=== PATIENT | male | born 1950 | race Asian ===

== ENCOUNTER 2016-07-19 09:09 | Day surgery (SDC) | payer BC, OTHER ==
[2016-07-14 13:14] VITALS: BMI 36.0
[2016-07-19] MEDS ORDERED: GUM MASTIC/STORAX/MSAL/ALCOHOL 1 DRP DROPSBTL MC ONE (10:15)
[2016-07-19] MEDS ORDERED: DEXAMETHASONE SOD PHOSPHATE/PF 10 MG/ML SDV ONE (10:21)
[2016-07-19] MEDS ORDERED: MIDAZOLAM HCL 2 MG/2 ML SINGLE DOSE VIAL ONE (10:21)
[2016-07-19] MEDS ORDERED: ROPIVACAINE HCL 0.5% 30ML VIAL ONE (10:22)
[2016-07-19] MEDS ORDERED: ceFAZolin SODIUM 1 GM VIAL ONE (10:55)
[2016-07-19] MEDS ORDERED: PROPOFOL 20 ML ONE (10:55)
[2016-07-19] MEDS ORDERED: oxyCODONE HCL 5 MG TABLET PO PRN ×2 (12:50→13:16)
[2016-07-19] MEDS ORDERED: LACTATED RINGERS SOLUTION 1,000 ML IV SCH (13:00)
[2016-07-19] MEDS ORDERED: ONDANSETRON 4 MG/2 ML VIAL IVPUSH PRN (13:16)
[2016-07-19 14:09] VITALS: PULSE 57
[2016-07-19] MEDS ORDERED: oxyCODONE HCL 5 MG TABLET ONE (14:29)
[2016-07-19 14:36] VITALS: BP 139/85; TEMP 98
--- NOTE | 2016-07-20 18:26 | OP ---
DATE OF OPERATION: 07/19/2016 PREOPERATIVE DIAGNOSES: 1. Left comminuted intra-articular displaced distal radius fracture. 2. Possible scapholunate ligament tear. POSTOPERATIVE DIAGNOSES: 1. Left comminuted intra-articular displaced distal radius fracture. 2. Left partial scapholunate ligament tear. OPERATIVE PROCEDURES: 1. Open reduction and internal fixation of left comminuted intra-articular displaced distal radius fracture with internal fixation of 3 or more fragments. 2. Left brachioradialis tenotomy. 3. Repair of partial scapholunate ligament tear. SURGEON: Simon Strange MD PIECE MEAT TRIMMER: ALBERTO Welch INDICATIONS FOR PROCEDURE: Patient is a 65-year-old male with the above findings, indicated for operative treatment. Risks, benefits, and alternatives were discussed with the patient at length and proper informed consent was obtained. DESCRIPTION OF PROCEDURE: After proper identification of the patient and the correct operative site, the patient was brought to the operating room and placed supine on the operating table. All prominences were well padded. Sedation was given by the anesthesiologist. Regional anesthesia was given with 2% lidocaine. The left upper extremity was prepped and draped in usual sterile fashion. A well-padded tourniquet was placed with a sterile prep. Esmarch bandage was used to exsanguinate the left upper extremity and a tourniquet was inflated to 250 mmHg. A longitudinal incision was made over the volar aspect of the wrist. The incision was taken sharply through the skin with blunt and sharp dissection through subcutaneous tissues. The flexor carpi radialis tendon along with the contents of the carpal canal was bluntly and gently retracted in the ulnarward direction for the remainder of the procedure. The pronator quadratus was divided longitudinally and elevated off the distal radius. A highly comminuted intra-articular displaced fracture was noted. A brachioradialis tenotomy was performed subperiosteally to include the radial styloid fragments. The shaft of the radius was pronated into the area, allowing access to the intrafocal area of the fracture. Articular fragments were found to be severely comminuted and were tamped up into the articular surface as well as possible. The shaft and distal radius were then reduced to each other and held with an Arthrex distal radius plate with distal locking screws and proximal nonlocking screws. Radiographically, this showed satisfactory reduction of the fracture. Slight widening of the scapholunate interval still appeared visible. Therefore, it was determined that we would visually look at the scapholunate ligament to determine its competency. At this point, a dorsal incision was made over the dorsal distal radius capsule longitudinally. Incision was taken sharply through the skin with blunt and sharp dissection through the subcutaneous tissues. The extensor pollicis longus tendon was transposed, and the 4th and 2nd compartments were elevated off of the dorsal distal radius capsule. The distal radius capsule was divided transversely in preparation for making a ligament-sparing capsulotomy. However, at this point, just a window was created in order to look at the scapholunate ligament and the distal radius. The distal radius articular surface was found to be reduced as well as possible. The scapholunate ligament was found to be generally intact volarly and dorsally with a small dorsal tear mid-substance. This was sutured with a 4-0 Vicryl suture. The wound was then irrigated with saline and the capsule was repaired with a 4-0 Vicryl suture. The extensor retinaculum was repaired with 4-0 Vicryl suture with the extensor pollicis longus transposed. The skin on both sides was repaired in layers with 4-0 Vicryl and 4-0 nylon suture. Sterile dressings were applied. Final x-rays were taken. The distal was found to be stable. A splint volar and dorsal splints were placed. The patient was reversed from anesthesia and brought to the recovery room in stable condition. He tolerated the procedure well. Javi Macias was integral throughout this procedure. This procedure could not have been performed without a skilled operative assessment. He was especially helpful and integral while reducing the fracture and placing hardware. This was a job that necessitated more than two hands and was not acceptable for other surgical staff to perform. SIMON STRANGE M.D. [id number]
== END 2016-07-19 15:19 | disposition home or self-care (01) ==
LOC: FASU 09:09
PROVIDERS: ATTEND Orthopaedic Surgery Hand Surgery
PROC: 0LN60ZZ Release Left Lower Arm and Wrist Tendon, Open Approach (ICD-10-PCS; 2016-07-19)
PROC: 0RQP0ZZ Repair Left Wrist Joint, Open Approach (ICD-10-PCS; 2016-07-19)
PROC: 0PSJ04Z Reposition Left Radius with Internal Fixation Device, Open Approach (ICD-10-PCS; principal; 2016-07-19 11:14)
DX: S52.532A Colles' fracture of left radius, initial encounter for closed fracture (principal); S63.521A Sprain of radiocarpal joint of right wrist, initial encounter; X58.XXXA Exposure to other specified factors, initial encounter; Y93.9 Activity, unspecified; Y92.9 Unspecified place or not applicable
CPT/HCPCS: 73110-TC-LT; 94760